=== PATIENT | female | born 1950 | race Caucasian/White ===

== ENCOUNTER 2023-10-19 08:34 | Inpatient (IN) ==
[2023-10-19] MEDS: NS 0.9% 1000 ml BAG 1,000 ML IV ONE (09:25)
[2023-10-19 09:33] LABS: ABS Lymphocytes 1.3 10^3/uL (1.0-4.8); ABS Monocytes 0.6 10^3/uL (0.0-0.9); ABS Neutrophils 4.1 10^3/uL (1.5-7.6); ABS Nucleated RBC 0.01 10^3/ul; Eosinophil % 0.7 %; Hemoglobin 14.8 g/dL (11.5-14.3); Lymphocyte % 21.8 %; Mean Corpuscular Hemoglobin 33.1 pg (27-33); Mean Corpuscular Hgb Conc 35.3 g/dL (31-36); Mean Corpuscular Volume 93.8 fL (80-97); Mean Platelet Volume 8.7 fL (7.5-11.2); Nucleated Red Blood Cells % 0.2 %/100WBC (0.0-0.8); Platelet Count 252 10^3/uL (150-450); Red Blood Count 4.48 10^6/uL (3.63-4.92); Red Cell Distribution Width 13.1 % (12-17); White Blood Count 6.1 10^3/uL (3.8-11.8)
[2023-10-19] MEDS: Lactated Ringers 1000 ml BAG 1,000 ML IV ONE (09:42)
[2023-10-19 09:44] LABS: INR 1.11 (0.83-1.13)
[2023-10-19 10:21] LABS: Magnesium 2.2 mg/dL (1.9-2.7)
[2023-10-19 10:22] LABS: Albumin 4.3 g/dL (3.2-5.2); Albumin/Globulin Ratio 1.7 (1-3); Calcium 9.8 mg/dL (8.6-10.3); Creatinine, Serum 1.14 mg/dL (0.51-0.95); Globulin 2.5 g/dL (2-4); Potassium 4.3 mmol/L (3.5-5.0); Total Bilirubin 0.4 mg/dL (0.2-1.0); Total Protein 6.8 g/dL (6.4-8.9); eGFR CKD-EPI 51.5 (>60)
[2023-10-19 10:35] LABS: TSH Ultra Thyroid Stim Horm 3.32 mcIU/mL (0.34-5.60)
[2023-10-19 11:01] LABS: High Sensitivity Troponin 1 Hr 30 pg/mL (<15)
[2023-10-19 13:25] LABS: Urine Appearance No Cx Clear (Clear); Urine Bilirubin No Culture Negative (Negative); Urine Blood No Culture Negative (Negative); Urine Color No Culture Light-Yellow; Urine Glucose No Culture Negative (Negative); Urine Ketones No Culture Negative (Negative); Urine Leukocytes No Culture 25 (Trace) Leu/uL (Negative); Urine Nitrite No Culture Negative (Negative); Urine Protein No Culture Trace (Negative); Urine Specific Gravity No Cx 1.015 (1.002-1.030); Urine Urobilinogen No Cx Negative (Negative)
[2023-10-19 13:30] LABS: Ur Squamous Epithelial No Cx Present /HPF (Absent); Urine Bacteria No Culture 1+ /HPF (Absent); Urine Hyaline Casts No Culture Present /HPF (Absent); Urine Red Blood Cell No Cult Trace(0-2/hpf) /HPF (0-Trace); Urine White Blood Cell No Cult Trace(0-5/hpf) /HPF (0-Trace)
[2023-10-19] MEDS ORDERED: Heparin 5000 UNITS/ML 1 mL VIAL SUBCUT SCH (14:00)
[2023-10-19] MEDS: Enoxaparin 40 MG/0.4 ML SYR SUBCUT SCH (18:32)
[2023-10-19] MEDS ORDERED: Mometasone/Formoter 100/5 MDI INH SCH (19:00)
[2023-10-19] MEDS: PTO: Budesonide/Formote 80/4.5(NF) MDI INH SCH (20:55)
[2023-10-19] MEDS: Senna TAB 8.6 mg TAB PO SCH (20:57)
[2023-10-20 06:51] LABS: Calcium 9.1 mg/dL (8.6-10.3); Creatinine, Serum 0.86 mg/dL (0.51-0.95); Magnesium 2.1 mg/dL (1.9-2.7); Potassium 4.8 mmol/L (3.5-5.0); eGFR CKD-EPI 72.2 (>60)
[2023-10-20 08:12] LABS: ABS Eosinophils 0.1 10^3/uL (0.0-0.5); ABS Lymphocytes 1.5 10^3/uL (1.0-4.8); ABS Monocytes 0.4 10^3/uL (0.0-0.9); ABS Neutrophils 3.9 10^3/uL (1.5-7.6); ABS Nucleated RBC 0.02 10^3/ul; Eosinophil % 1.9 %; Hematocrit 39.8 % (35-45); Hemoglobin 13.4 g/dL (11.5-14.3); Mean Corpuscular Hemoglobin 32.9 pg (27-33); Mean Corpuscular Hgb Conc 33.7 g/dL (31-36); Mean Corpuscular Volume 97.6 fL (80-97); Nucleated Red Blood Cells % 0.4 %/100WBC (0.0-0.8); Platelet Count 178 10^3/uL (150-450); Red Blood Count 4.08 10^6/uL (3.63-4.92); Red Cell Distribution Width 13.2 % (12-17)
[2023-10-20] MEDS: Cholecalciferol (VIT D3) 1,000 unit TAB PO SCH (08:33)
[2023-10-20] MEDS: Polyethylene Glycol 3350 17 GM PACKET PO SCH (08:33)
[2023-10-20 10:51] LABS: HDL Cholesterol 49.2 mg/dL
[2023-10-20] MEDS ORDERED: Sulfur Hexaflouride MICROSPHR 25 MG VIAL ONE (11:42)
[2023-10-20 14:04] VITALS: BP 103/69
== END 2023-10-20 17:50 | disposition home or self-care (01) | DRG 309 ==
LOC: ED 08:34 → SUATTDRO 11:06 → EDHOLD 11:06 → MEDTELE 15:52
PROVIDERS: ADMIT Student in an Organized Health Care Education/Training Program; ATTEND Hospitalist